=== PATIENT | male | born 1990 | race African-American/Black ===

== ENCOUNTER 2022-12-13 12:24 | Emergency (ER) | payer MEDICARE ==
[~2022-12-13] VITALS: Ht 157.5 cm; Wt 69.0 kg
[2022-12-13 12:28] VITALS: TEMP 98.8; O2SAT 98
[2022-12-13] MEDS ORDERED: TETANUS, DIPHTHERIA, PERTUSSIS VAC/PF 0.5ML (>10YR OLD) IM ONE (13:00)
[2022-12-13] MEDS ORDERED: LIDOCAINE HCL/EPINEPHRINE 1%-EPI 1:100,000 20 ML VIAL INFIL ONE (13:00)
[2022-12-13] MEDS ORDERED: BACITRACIN ZINC OINT UDPKT TOP ONE (13:00)
[2022-12-13] MEDS: HYDROCODONE/ACETAMINOPHEN 5/325MG TABLET PO ONE ×2 (13:32→13:41)
[2022-12-13] MEDS ORDERED: IBUPROFEN 600MG TABLET PO ONE (14:15)
[2022-12-13] MEDS ORDERED: BO1 TP (15:36)
[2022-12-13] MEDS ORDERED: CEPH500C2 MT (15:36)
[2022-12-13] MEDS ORDERED: IBUP-2029 MT (15:36)
[2022-12-13 16:15] VITALS: BP 128/89; PULSE 82; RESP 16
== END 2022-12-13 16:40 | disposition home or self-care (01) ==
LOC: ER 12:24
DX: S21.212A Laceration without foreign body of left back wall of thorax without penetration into thoracic cavity, initial encounter (principal); W22.8XXA Striking against or struck by other objects, initial encounter; Y93.67 Activity, basketball; Y92.89 Other specified places as the place of occurrence of the external cause; Y99.8 Other external cause status
CPT/HCPCS: 71045; 90715; 12002; 90471; 99283; J3490; Z7610 ×4

== ENCOUNTER 2022-12-13 16:58 | Emergency (ER) | payer MEDICAID, MEDICARE ==
[~2022-12-13] VITALS: Ht 160 cm; Wt 75.0 kg
[~2022-12-13 16:58] MED LIST: BO1 TP; CEPH500C2 MT; IBUP-2029 MT
[2022-12-13 17:01] VITALS: O2SAT 100
[2022-12-13] MEDS ORDERED: TRANEXAMIC ACID 1,000 MG in SODIUM CHLORIDE 0.9% 100 ML IV ONE (17:15)
[2022-12-13] MEDS ORDERED: TRANEXAMIC ACID 1,000 MG/10 ML TP ONE (17:15)
[2022-12-13] MEDS ORDERED: SODIUM CHLORIDE 0.9% 1,000 ML IV ONE (17:45)
[2022-12-13 19:12] LABS: BASOPHILS % 0.3 % (0.0-2.0); EOSINOPHILS % 0.7 % (0.0-5.0); HEMATOCRIT. 46.7 % (42.0-52.0); HEMOGLOBIN. 15.4 g/dL (14.0-18.0); MEAN CORPUSCULAR HGB CONC 33.1 g/dL (31.0-37.0); MEAN CORPUSCULAR VOLUME 90.7 fL (80.0-94.0); MEAN PLATELET VOLUME 6.3 fl (7.4-10.4); MONOCYTES % 8.5 % (2.0-8.0); NEUTROPHILS % 74.5 % (40.0-76.0); PLATELET 340 x1000/uL (130-400); RED BLOOD CELL COUNT 5.14 mill/uL (4.7-6.1); RED CELL DISTRIBUTION WIDTH 13.1 % (11.6-14.6); WHITE BLOOD COUNT 11.8 x1000/uL (4.5-11.0)
[2022-12-13 19:21] LABS: CHLORIDE 104 mEq/L (98-107); INDEX HEMOLYSI 1 (1-3); INDEX ICTERIC 1 (1-4); INDEX LIPEMIC 1 (1-3); POTASSIUM 3.7 mEq/L (3.5-5.1); SODIUM 137 mEq/L (136-145)
[2022-12-13 19:27] LABS: CALCIUM 9.1 mg/dL (8.5-10.1); CARBON DIOXIDE 28 mEq/L (21-32); GLUCOSE 89 mg/dL (70-105); UREA NITROGEN BLOOD 13 mg/dL (7-21)
[2022-12-13] MEDS ORDERED: LIDOCAINE HCL/EPINEPHRINE 1%-EPI 1:100,000 20 ML VIAL INFIL ONE (19:45)
[2022-12-13 21:22] VITALS: BP 128/76; PULSE 92; RESP 17
== END 2022-12-13 21:30 | disposition home or self-care (01) ==
LOC: ER 16:58
DX: S20.222A Contusion of left back wall of thorax, initial encounter (principal); X58.XXXA Exposure to other specified factors, initial encounter; Y93.89 Activity, other specified; Y92.89 Other specified places as the place of occurrence of the external cause; Y99.8 Other external cause status
CPT/HCPCS: 80048; 85025; 36415; 71045; 12013; 96361; 96365; 99284; J3490; J7050; J7030; Z7610